=== PATIENT | female | born 1955 | race Caucasian/White ===

== ENCOUNTER 2021-03-24 08:00 | Outpatient (RCR) | payer BC, OTHER | END 2021-03-28 | LOC: OT 08:00 | PROVIDERS: ATTEND Orthopaedic Surgery | DX: M18.11 Unilateral primary osteoarthritis of first carpometacarpal joint, right hand (principal) ==

== ENCOUNTER 2021-06-29 18:18 | Emergency (ER) | payer OTHER ==
[~2021-06-29] VITALS: Ht 157.5 cm; Wt 90.7 kg
[2021-06-29] MEDS ORDERED: HYDROCODONE/APAP 5MG-325MG TAB PO ONE (19:00)
[2021-06-29] MEDS ORDERED: HYDROCODON-ACE1 EA12 PO (21:10)
== END 2021-06-29 21:25 | disposition home or self-care (01) ==
LOC: FSED 18:37
DX: S52.592A Other fractures of lower end of left radius, initial encounter for closed fracture (principal); S52.612A Displaced fracture of left ulna styloid process, initial encounter for closed fracture; W01.0XXA Fall on same level from slipping, tripping and stumbling without subsequent striking against object, initial encounter; Y93.01 Activity, walking, marching and hiking; Y92.89 Other specified places as the place of occurrence of the external cause; I10 Essential (primary) hypertension; E03.9 Hypothyroidism, unspecified; F41.9 Anxiety disorder, unspecified
CPT/HCPCS: 99284

== ENCOUNTER 2021-08-15 07:56 | Outpatient (RCR) | payer OTHER ==
[~2021-08-15 07:56] MED LIST: HYDROCODON-ACE1 EA12 PO
== END 2021-08-28 ==
LOC: OT 07:56
PROVIDERS: ATTEND Orthopaedic Surgery
DX: S52.502D Unspecified fracture of the lower end of left radius, subsequent encounter for closed fracture with routine healing (principal); M25.532 Pain in left wrist; R53.1 Weakness